=== PATIENT | male | born 1950 | race Caucasian/White ===

== ENCOUNTER 2017-06-12 05:35 | Emergency (ER) | payer OTHER ==
[~2017-06-12] VITALS: Ht 177.8 cm; Wt 99.3 kg
[2017-06-12 05:52] VITALS: BP 137/82
== END 2017-06-12 06:49 | disposition home or self-care (01) ==
LOC: ER 05:36
DX: L30.9 Dermatitis, unspecified (principal); I10 Essential (primary) hypertension

== ENCOUNTER 2017-09-12 15:46 | Emergency (ER) | payer OTHER ==
[~2017-09-12] VITALS: Ht 177.8 cm; Wt 99.8 kg
[2017-09-12] MEDS ORDERED: SODIUM CHLORIDE 0.9% 1,000 ML IV ONE ×2 (15:56→20:45)
[2017-09-12 18:16] LABS: Hematocrit 34.6 % (41.0-53.0); Hemoglobin 11.8 g/dL (13.5-17.5); Mean Corpuscular Hemoglobin 35.2 pg (28.0-32.0); Mean Corpuscular Hgb Conc. 34.2 g/dL (32.0-36.0); Mean Platelet Volume 6.3 fL (6.9-10.8); Platelet Count (auto) 350 10^3/uL (140-450); Red Cell Distribution Width 14.3 % (11.8-14.3)
[2017-09-12 18:22] LABS: Metamyelocytes % 0; Myelocytes % 0; Promyelocytes % 0; Reactive Lymphocytes 0
[2017-09-12 18:39] LABS: Albumin 2.6 g/dL (3.4-5.0); Alkaline Phosphatase 254 U/L (45-117); Anion Gap 12 (5-15); Aspartate Aminotransferase 32 U/L (15-37); BUN/Creatinine Ratio 7.5; Bilirubin, Total 1.2 mg/dL (0.2-1.0); Blood Urea Nitrogen 8 mg/dL (7-18); Calcium 7.7 mg/dL (8.5-10.1); Carbon Dioxide 25 mmol/L (21-32); Chloride 89 mmol/L (98-107); GFR African American 89 mL/min; GFR Non-African American 74 mL/min; Glucose 111 mg/dL (74-106); Magnesium 1.9 mg/dL (1.6-2.6); Potassium 3.3 mmol/L (3.5-5.1); Sodium 126 mmol/L (136-145); Total Protein 6.6 g/dL (6.4-8.2)
[2017-09-12 19:07] LABS: Anisocytosis Moderate; Macrocytosis Slight; Platelet Estimate Adequate
[2017-09-12 19:08] LABS: Platelet Clumps FEW
[2017-09-12] MEDS ORDERED: diphenhdrAMINE HCL 50 MG/1 ML VL IV ONE (19:45)
[2017-09-12] MEDS ORDERED: FOLIC ACID 1 MG TAB PO ONE (20:45)
[2017-09-12] MEDS ORDERED: PYRIDOXINE HCL 50 MG TAB PO ONE (20:45)
[2017-09-12] MEDS ORDERED: POTASSIUM CHL 20MEQ/50ML 50 ML IV ONE (20:45)
[2017-09-12] MEDS ORDERED: KETOROLAC TROMETH 30 MG/ML 1ML VIAL IV ONE (21:15)
[2017-09-12 21:28] VITALS: BP 93/55
[2017-09-12] MEDS ORDERED: LORazepam 2MG/ML-1ML VIAL ONE (21:36)
[2017-09-12] MEDS ORDERED: LORazepam 2MG/ML-1ML VIAL IV ONE (21:45)
[2017-09-12] MEDS ORDERED: methylPREDNISolone SOD SUCC 125 MG/2 ML VL IV ONE (21:45)
== END 2017-09-12 23:02 | disposition home or self-care (01) ==
LOC: EDBD 15:46 → ER 15:53
DX: F10.10 Alcohol abuse, uncomplicated (principal); E87.6 Hypokalemia; I10 Essential (primary) hypertension; E83.51 Hypocalcemia; Z90.49 Acquired absence of other specified parts of digestive tract
CPT/HCPCS: 36415; 71010; 80053; 80320; 83735; 84484; 85007; 85027; 93005; 94761; 96361; 96374; 96375; 99285; J1200; J1885; J2060; J2930; J7030

== ENCOUNTER 2017-10-05 16:59 | Emergency (ER) | payer OTHER ==
[~2017-10-05] VITALS: Ht 177.8 cm; Wt 99.8 kg
[2017-10-05 19:23] LABS: Basophils # (auto) 0.1 uL; Eosinophils % (auto) 7.6 % (0.0-7.0); Lymphocytes # (auto) 1.2 uL; White Blood Cell 12.7 10^3/uL (4.4-10.8)
[2017-10-05 19:25] LABS: Basophils % (auto) 0.6 % (0.0-2.0); Hemoglobin 12.4 g/dL (13.5-17.5); Lymphocytes % (auto) 9.7 % (10.0-50.0); Mean Corpuscular Hgb Conc. 34.4 g/dL (32.0-36.0); Mean Corpuscular Volume 101.6 fL (80.0-100.0); Mean Platelet Volume 6.7 fL (6.9-10.8); Monocytes # (auto) 0.6 uL; Monocytes % (auto) 4.8 % (0.0-12.0); Neutrophils # (auto) 9.8 uL; Neutrophils % (auto) 77.3 % (37.0-80.0); Nucleated Red Blood Cells % 0.1 %; Platelet Count (auto) 493 10^3/uL (140-450); Red Cell Distribution Width 13.5 % (11.8-14.3)
[2017-10-05 19:39] LABS: INR 0.94 (0.9-1.15); Partial Thromboplastin Time 26.1 sec (22.64-33.71); Prothrombin Time 10.2 sec (9.37-12.3)
[2017-10-05 19:40] LABS: Albumin 2.5 g/dL (3.4-5.0); Anion Gap 12 (5-15); Blood Urea Nitrogen 10 mg/dL (7-18); Calcium 8.1 mg/dL (8.5-10.1); Carbon Dioxide 27 mmol/L (21-32); Chloride 85 mmol/L (98-107); Glucose 154 mg/dL (74-106); Sodium 124 mmol/L (136-145)
[2017-10-05 19:42] LABS: Aspartate Aminotransferase 31 U/L (15-37); BUN/Creatinine Ratio 12.7; GFR African American 127 mL/min; GFR Non-African American 105 mL/min
[2017-10-05 19:47] LABS: Alkaline Phosphatase 181 U/L (45-117); Bilirubin, Total 0.7 mg/dL (0.2-1.0); Total Protein 6.3 g/dL (6.4-8.2)
[2017-10-05] MEDS ORDERED: MVI in SODIUM CHLORIDE 0.9% 1,010 ML IV ONE (23:10)
[2017-10-05] MEDS ORDERED: cefTRIAXone 1GM/10ml IVPUSH 10 ML IV ONE (23:15)
[2017-10-05] MEDS ORDERED: methylPREDNISolone SOD SUCC 125 MG/2 ML VL IV ONE (23:15)
[2017-10-05] MEDS ORDERED: THIAMINE HCL 100 MG/ML 2ML VIAL IV ONE (23:15)
[2017-10-05] MEDS ORDERED: diphenhdrAMINE HCL 50 MG/1 ML VL IV ONE (23:15)
[2017-10-06 03:03] VITALS: BP 114/71
== END 2017-10-06 02:38 | disposition home or self-care (01) ==
LOC: ER 16:59 → EDBD 16:59 → ER 10-06 02:38
DX: S00.03XA Contusion of scalp, initial encounter (principal); I10 Essential (primary) hypertension; L30.9 Dermatitis, unspecified; W18.39XA Other fall on same level, initial encounter; Y93.89 Activity, other specified; Y92.89 Other specified places as the place of occurrence of the external cause; Y99.8 Other external cause status
CPT/HCPCS: 36415; 70450; 80053; 84484; 85025; 85610; 85730; 87077; 87186; 87205; 93005; 96361; 96374; 96375; 99285; J1200; J2930; J3411; J3475; 96365

== ENCOUNTER 2017-10-14 07:15 | Emergency (ER) | payer OTHER ==
[~2017-10-14] VITALS: Ht 177.8 cm; Wt 98.9 kg
[2017-10-14] MEDS: LIDOCAINE 2%HCL (LOCAL ANESTH.) INJ 20ML MDV ONE (11:23)
[2017-10-14] MEDS: LIDOCAINE 1% HCL (LOCAL ANESTH.) INJ 20ML MDV IJ ONE (11:47)
[2017-10-14 12:04] VITALS: BP 119/69
[2017-10-14] MEDS: TETANUS-DIPTH-ACEL PERTUSSIS 0.5ML SYRG IM ONE (12:05)
[2017-10-14] MEDS: cefTRIAXone W LIDOCAINE 1 GM IM IM ONE (12:42)
== END 2017-10-14 12:47 | disposition home or self-care (01) ==
LOC: EDBD 07:15 → ER 07:15
DX: S01.511A Laceration without foreign body of lip, initial encounter (principal); I10 Essential (primary) hypertension; Z90.49 Acquired absence of other specified parts of digestive tract; Z23 Encounter for immunization; W01.0XXA Fall on same level from slipping, tripping and stumbling without subsequent striking against object, initial encounter; Y93.89 Activity, other specified; Y92.89 Other specified places as the place of occurrence of the external cause; Y99.8 Other external cause status
CPT/HCPCS: 12053; 70450; 70486; 90471; 90715; 96372; 99284; J0696